=== PATIENT | male | born 1965 | race Caucasian/White ===

== ENCOUNTER 2023-08-22 12:21 | Inpatient (IN) | payer OTHER ==
[2023-08-22 13:41] VITALS: BMI 25.1
[2023-08-22] MEDS ORDERED: NALOXONE HCL (KLOXXADO) 8 MG SPRAY NS PRN (15:40)
[2023-08-22] MEDS ORDERED: BENZONATATE 200 MG CAPSULE PO PRN (15:40)
[2023-08-22] MEDS ORDERED: MAG HYDROX/AL HYDROX/SIMETH 30 ML UNIT-DOSE CUP PO PRN (15:40)
[2023-08-22] MEDS ORDERED: DICYCLOMINE HCL 10 MG CAPSULE PO PRN (15:40)
[2023-08-22] MEDS ORDERED: chlordiazePOXIDE HCL 25 MG CAPSULE PO PRN (15:40)
[2023-08-22] MEDS ORDERED: guaiFENesin 600 MG TABLET.ER (FP) PO PRN (15:40)
[2023-08-22] MEDS ORDERED: IBUPROFEN 400 MG TABLET (FP) PO PRN (15:40)
[2023-08-22] MEDS ORDERED: BENZOCAINE/MENTHOL (CHLORASEPTIC ) LOZENGE MM PRN (15:40)
[2023-08-22] MEDS ORDERED: MAGNESIUM HYDROX 2400MG/30ML ORAL SUSPENSION 30 ML CUP PO PRN (15:40)
[2023-08-22] MEDS ORDERED: POLYETHYLENE GLYCOL (HEALTHYLAX) 3350 17 GM PACKET PO PRN (15:40)
[2023-08-22] MEDS ORDERED: BISMUTH SUBSALICYLATE 262 MG/15 ML BTL PO PRN (15:40)
[2023-08-22] MEDS ORDERED: methaDONE HCL 10 MG TABLET (FOR DETOX USE ONLY) PO ONE (15:40)
[2023-08-22] MEDS ORDERED: NALOXONE HCL 0.4 MG/ML VIAL IM PRN (15:40)
[2023-08-22] MEDS ORDERED: ACETAMINOPHEN 325 MG TABLET (FP) PO PRN (15:40)
[2023-08-22] MEDS ORDERED: methaDONE HCL 10 MG TABLET (FOR DETOX USE ONLY) ONE (16:23)
[2023-08-22] MEDS: cloNIDine HCL 0.1 MG TABLET PO PRN (16:50)
[2023-08-22] MEDS: chlordiazePOXIDE HCL 25 MG CAPSULE PO SCH ×2 (16:50→22:26)
[2023-08-22] MEDS: MELATONIN 5 MG TABLETS PO SCH (22:25)
[2023-08-22] MEDS: THIAMINE HCL 100 MG TABLET (FP) PO SCH (22:25)
[2023-08-22] MEDS: IBUPROFEN 600 MG TABLET (FP) PO PRN (22:29)
[2023-08-23] MEDS: chlordiazePOXIDE HCL 25 MG CAPSULE PO SCH ×4 (05:37→22:16)
[2023-08-23] MEDS: PRENATAL VITAMINS W/ FOLIC ACID TABLET (FP) PO SCH ×2 (09:38→09:56)
[2023-08-23] MEDS: cloNIDine HCL 0.1 MG TABLET PO PRN ×2 (10:01→17:15)
[2023-08-23 11:02] LABS: HEMATOCRIT 37.5 % (35.4-49); HEMOGLOBIN 12.6 GM/dL (11.7-16.9); MCH 29.7 pg (25.7-33.7); MCHC 33.5 g/dl (32.0-35.9); MEAN CELL VOLUME 88.6 fl (80-96); MEAN PLT VOLUME 9.9 fl (7.5-11.1); PLATELET COUNT 173 10^3/uL (134-434); RBC 4.24 M/mm3 (4.00-5.60); RDW 13.2 % (11.9-15.9); WHITE BLOOD COUNT 5.6 K/mm3 (4.0-10.0)
[2023-08-23 11:05] LABS: CHLORIDE 104 mmol/L (98-107); POTASSIUM 3.5 mmol/L (3.5-5.1); SODIUM 138 mmol/L (136-145)
[2023-08-23 11:15] LABS: ANION GAP 6 mmol/L (4-13); CO2 28 mmol/L (21-32); GLUCOSE,RANDOM 114 mg/dL (74-106)
[2023-08-23 11:17] LABS: ALBUMIN 3.4 g/dl (3.4-5.0)
[2023-08-23 11:18] LABS: CREATININE 0.8 mg/dL (0.55-1.3); SGOT/AST 24 U/L (15-37); SGPT/ALT 25 U/L (13-61)
[2023-08-23 11:20] LABS: TOT PROT 6.8 g/dl (6.4-8.2)
[2023-08-23 11:21] LABS: ALK PHOS 73 U/L (45-117)
[2023-08-23] MEDS: QUEtiapine FUMARATE 100 MG TABLET (FP) PO SCH (22:16)
[2023-08-23] MEDS: THIAMINE HCL 100 MG TABLET (FP) PO SCH (22:16)
[2023-08-23] MEDS: MELATONIN 5 MG TABLETS PO SCH (22:17)
[2023-08-24] MEDS: chlordiazePOXIDE HCL 25 MG CAPSULE PO SCH ×4 (05:21→22:10)
[2023-08-24] MEDS: cloNIDine HCL 0.1 MG TABLET PO PRN ×2 (07:27→17:33)
[2023-08-24] MEDS ORDERED: methaDONE HCL 10 MG TABLET (FOR DETOX USE ONLY) PO ONE (10:00)
[2023-08-24] MEDS: PRENATAL VITAMINS W/ FOLIC ACID TABLET (FP) PO SCH (10:18)
[2023-08-24] MEDS: METHOCARBAMOL 500 MG TABLET PO PRN ×2 (10:21→17:35)
[2023-08-24] MEDS ORDERED: cloNIDine HCL 0.1 MG TABLET PO ONE (11:41)
[2023-08-24] MEDS ORDERED: amLODIPine BESYLATE 10 MG TABLET (FP) PO ONE (11:43)
[2023-08-24] MEDS: IBUPROFEN 600 MG TABLET (FP) PO PRN (17:37)
[2023-08-24] MEDS: THIAMINE HCL 100 MG TABLET (FP) PO SCH (22:10)
[2023-08-24] MEDS: QUEtiapine FUMARATE 100 MG TABLET (FP) PO SCH (22:10)
[2023-08-24] MEDS: MELATONIN 5 MG TABLETS PO SCH (22:11)
[2023-08-25] MEDS ORDERED: chlordiazePOXIDE HCL 10 MG CAPSULE PO PRN
[2023-08-25] MEDS: chlordiazePOXIDE HCL 10 MG CAPSULE PO SCH ×3 (05:38→17:52)
[2023-08-25] MEDS ORDERED: cloNIDine HCL 0.1 MG TABLET PO ONE (08:44)
[2023-08-25] MEDS ORDERED: hydrOXYzine PAMOATE 25 MG CAPSULE (FP) PO ONE (08:46)
[2023-08-25] MEDS: METHOCARBAMOL 500 MG TABLET PO PRN (08:56)
[2023-08-25] MEDS ORDERED: amLODIPine BESYLATE 10 MG TABLET (FP) PO SCH (10:00)
[2023-08-25] MEDS ORDERED: cloNIDine HCL 0.1 MG TABLET PO SCH (10:00)
[2023-08-25] MEDS: PRENATAL VITAMINS W/ FOLIC ACID TABLET (FP) PO SCH (10:39)
[2023-08-25 17:23] VITALS: BP 139/113; PULSE 97; RESP 18; TEMP 98.2
[2023-08-26] MEDS ORDERED: chlordiazePOXIDE HCL 10 MG CAPSULE PO SCH (05:00)
[2023-08-26] MEDS ORDERED: methaDONE HCL 10 MG TABLET (FOR DETOX USE ONLY) PO ONE (10:00)
[2023-08-27] MEDS ORDERED: chlordiazePOXIDE HCL 10 MG CAPSULE PO ONE (05:00)
== END 2023-08-25 17:52 | disposition left against medical advice (07) | DRG 770 ==
LOC: YASAS 12:21 → Y6N 15:51
PROVIDERS: ADMIT Allergy & Immunology; ATTEND Surgery
PROC: HZ2ZZZZ Detoxification Services for Substance Abuse Treatment (ICD-10-PCS; principal; 2023-08-22)
DX: F11.23 Opioid dependence with withdrawal (principal); F10.230 Alcohol dependence with withdrawal, uncomplicated; F39 Unspecified mood [affective] disorder; F31.9 Bipolar disorder, unspecified; F19.982 Other psychoactive substance use, unspecified with psychoactive substance-induced sleep disorder; F19.94 Other psychoactive substance use, unspecified with psychoactive substance-induced mood disorder; I10 Essential (primary) hypertension; M54.59 Other low back pain; G89.29 Other chronic pain; Z62.810 Personal history of physical and sexual abuse in childhood; Z86.19 Personal history of other infectious and parasitic diseases; Z56.0 Unemployment, unspecified; Z59.00 Homelessness unspecified; Z87.891 Personal history of nicotine dependence
CPT/HCPCS: 36415; 80053; 80307; 85027; 86780; 87635

== ENCOUNTER 2023-11-15 14:05 | Inpatient (IN) | payer OTHER ==
[2023-11-15 14:52] VITALS: BMI 24.1
[2023-11-15] MEDS ORDERED: BUPRENORPHINE HCL 150 MCG, BUPRENORPHINE HCL 75 MCG BC PRN (18:04)
[2023-11-15] MEDS ORDERED: diazePAM 5 MG TABLET PO PRN ×2 (18:04)
[2023-11-15] MEDS ORDERED: POLYETHYLENE GLYCOL (HEALTHYLAX) 3350 17 GM PACKET PO PRN (18:07)
[2023-11-15] MEDS ORDERED: BENZOCAINE/MENTHOL (CHLORASEPTIC ) LOZENGE MM PRN (18:07)
[2023-11-15] MEDS ORDERED: NALOXONE HCL (KLOXXADO) 8 MG SPRAY NS PRN (18:07)
[2023-11-15] MEDS ORDERED: MAG HYDROX/AL HYDROX/SIMETH 30 ML UNIT-DOSE CUP PO PRN (18:07)
[2023-11-15] MEDS ORDERED: MAGNESIUM HYDROX 2400MG/30ML ORAL SUSPENSION 30 ML CUP PO PRN (18:07)
[2023-11-15] MEDS ORDERED: DICYCLOMINE HCL 10 MG CAPSULE PO PRN (18:07)
[2023-11-15] MEDS ORDERED: LOPERAMIDE HCL 2 MG CAPSULE PO PRN (18:07)
[2023-11-15] MEDS ORDERED: guaiFENesin 600 MG TABLET.ER (FP) PO PRN (18:07)
[2023-11-15] MEDS ORDERED: BENZONATATE 200 MG CAPSULE PO PRN (18:07)
[2023-11-15] MEDS ORDERED: ACETAMINOPHEN 325 MG TABLET (FP) PO PRN (18:07)
[2023-11-15] MEDS ORDERED: NALOXONE HCL 0.4 MG/ML VIAL IM PRN (18:07)
[2023-11-15] MEDS ORDERED: IBUPROFEN 400 MG TABLET (FP) PO PRN (18:07)
[2023-11-15] MEDS ORDERED: IBUPROFEN 600 MG TABLET (FP) PO PRN (18:07)
[2023-11-15] MEDS ORDERED: BISMUTH SUBSALICYLATE 524 MG/30 ML PO PRN (18:07)
[2023-11-15] MEDS: BUPRENORPHINE HCL 150 MCG, BUPRENORPHINE HCL 75 MCG BC ONE (18:28)
[2023-11-15] MEDS: cloNIDine HCL 0.1 MG TABLET PO ONE (18:33)
[2023-11-15] MEDS: THIAMINE HCL 100 MG TABLET (FP) PO SCH (22:18)
[2023-11-15] MEDS: diazePAM 5 MG TABLET PO SCH (22:18)
[2023-11-15] MEDS: METHOCARBAMOL 500 MG TABLET PO PRN (22:18)
[2023-11-15] MEDS: MELATONIN 5 MG TABLETS PO SCH (22:19)
[2023-11-16] MEDS: ONDANSETRON *ODT* 4 MG TABLET SL PRN (05:58)
[2023-11-16] MEDS: BUPRENORPHINE HCL 150 MCG, BUPRENORPHINE HCL 75 MCG BC SCH (05:58)
[2023-11-16] MEDS: TRIMETHOBENZAMIDE HCL 200MG/2ML INJ IM PRN (08:17)
[2023-11-16] MEDS: PRENATAL VITAMINS W/ FOLIC ACID TABLET (FP) PO SCH (10:09)
[2023-11-16] MEDS: GABAPENTIN 300 MG CAPSULE PO SCH (10:10)
[2023-11-16] MEDS: cloNIDine HCL 0.1 MG TABLET PO PRN (10:12)
[2023-11-16 11:49] LABS: HEMATOCRIT 39.7 % (35.4-49); HEMOGLOBIN 13.2 GM/dL (11.7-16.9); MCHC 33.3 g/dl (32.0-35.9); MEAN CELL VOLUME 90.1 fl (80-96); MEAN PLT VOLUME 9.6 fl (7.5-11.1); PLATELET COUNT 193 10^3/uL (134-434); RBC 4.41 M/mm3 (4.00-5.60); RDW 14.3 % (11.9-15.9); WHITE BLOOD COUNT 5.1 K/mm3 (4.0-10.0)
[2023-11-16 11:51] LABS: CHLORIDE 104 mmol/L (98-107); POTASSIUM 4.4 mmol/L (3.5-5.1); SODIUM 140 mmol/L (136-145)
[2023-11-16 11:53] LABS: CALCIUM 9.3 mg/dL (8.5-10.1)
[2023-11-16 11:54] LABS: ALBUMIN 3.9 g/dl (3.4-5.0); ANION GAP 6 mmol/L (4-13); BLOOD UREA NITROGEN 19.7 mg/dL (7-18); CO2 30 mmol/L (21-32); GLUCOSE,RANDOM 194 mg/dL (74-106)
[2023-11-16 11:58] LABS: CREATININE 1.1 mg/dL (0.55-1.3); SGOT/AST 25 U/L (15-37); SGPT/ALT 27 U/L (13-61)
[2023-11-16] MEDS: BUPRENORPHINE HCL 150 MCG, BUPRENORPHINE HCL 75 MCG BC PRN (11:58)
[2023-11-16 11:59] LABS: TOT PROT 7.8 g/dl (6.4-8.2)
[2023-11-16 12:01] LABS: ALK PHOS 81 U/L (45-117)
[2023-11-16] MEDS: hydrOXYzine PAMOATE 25 MG CAPSULE (FP) PO PRN (17:46)
[2023-11-17] MEDS: BUPRENORPHINE HCL 450 MCG FILM BC SCH (06:23)
[2023-11-17] MEDS: diazePAM 5 MG TABLET PO SCH (06:23)
[2023-11-17] MEDS: GABAPENTIN 300 MG CAPSULE PO SCH (14:26)
[2023-11-18] MEDS: BUPRENORPHINE/NALOXONE 4 MG/1 MG FILM PACKET SL SCH (05:55)
[2023-11-18] MEDS: diazePAM 5 MG TABLET PO SCH (05:56)
[2023-11-19] MEDS: BUPRENORPHINE/NALOXONE 8 MG/2 MG FILM PACKET SL ONE (06:06)
[2023-11-19] MEDS: diazePAM 5 MG TABLET PO ONE (06:07)
[2023-11-19 09:28] VITALS: BP 126/84; PULSE 99; RESP 20; TEMP 98.2
== END 2023-11-19 10:56 | disposition home or self-care (01) | DRG 773 ==
LOC: YASAS 14:05 → Y6N 17:55
PROVIDERS: ADMIT Allergy & Immunology; ATTEND Surgery
PROC: HZ2ZZZZ Detoxification Services for Substance Abuse Treatment (ICD-10-PCS; principal; 2023-11-15)
DX: F11.23 Opioid dependence with withdrawal (principal); F10.230 Alcohol dependence with withdrawal, uncomplicated; F14.20 Cocaine dependence, uncomplicated; F19.282 Other psychoactive substance dependence with psychoactive substance-induced sleep disorder; F31.9 Bipolar disorder, unspecified; G62.9 Polyneuropathy, unspecified; I10 Essential (primary) hypertension; M54.50 Low back pain, unspecified; G89.29 Other chronic pain; R73.03 Prediabetes; Z87.891 Personal history of nicotine dependence; Z86.19 Personal history of other infectious and parasitic diseases; Z28.310 Unvaccinated for COVID-19; Z28.9 Immunization not carried out for unspecified reason
CPT/HCPCS: 36415; 80053; 80305; 80307; 82962; 83036; 85027; 86780; 93005; 93010; Q0162

== ENCOUNTER 2024-11-13 18:28 | Inpatient (IN) | payer OTHER ==
[2024-11-13 19:06] VITALS: BMI 25.9
[2024-11-13] MEDS ORDERED: BENZONATATE 200 MG CAPSULE PO PRN (19:44)
[2024-11-13] MEDS ORDERED: NALOXONE (NARCAN) HCL 4 MG/0.1 ML SPRAY NS PRN (19:44)
[2024-11-13] MEDS ORDERED: MAGNESIUM HYDROX 2400MG/30ML ORAL SUSPENSION 30 ML CUP PO PRN (19:44)
[2024-11-13] MEDS ORDERED: DICYCLOMINE HCL 10 MG CAPSULE PO PRN (19:44)
[2024-11-13] MEDS ORDERED: POLYETHYLENE GLYCOL (HEALTHYLAX) 3350 17 GM PACKET PO PRN (19:44)
[2024-11-13] MEDS ORDERED: guaiFENesin 600 MG TABLET.ER (FP) PO PRN (19:44)
[2024-11-13] MEDS ORDERED: MAG HYDROX/AL HYDROX/SIMETH 30 ML UNIT-DOSE CUP PO PRN (19:44)
[2024-11-13] MEDS ORDERED: IBUPROFEN 400 MG TABLET (FP) PO PRN (19:44)
[2024-11-13] MEDS ORDERED: ACETAMINOPHEN 325 MG TABLET (FP) PO PRN (19:44)
[2024-11-13] MEDS ORDERED: IBUPROFEN 600 MG TABLET (FP) PO PRN (19:44)
[2024-11-13] MEDS ORDERED: METHOCARBAMOL 500 MG TABLET PO PRN (19:44)
[2024-11-13] MEDS ORDERED: BISMUTH SUBSALICYLATE 524 MG/30 ML PO PRN (19:44)
[2024-11-13] MEDS ORDERED: LOPERAMIDE HCL 2 MG CAPSULE PO PRN (19:44)
[2024-11-13] MEDS ORDERED: diazePAM 5 MG TABLET PO PRN (19:44)
[2024-11-13] MEDS ORDERED: BENZOCAINE/MENTHOL (CHLORASEPTIC ) LOZENGE MM PRN (19:44)
[2024-11-13] MEDS ORDERED: MELATONIN 5 MG TABLETS ONE (22:28)
[2024-11-13] MEDS ORDERED: GABAPENTIN 100 MG CAPSULE ONE (22:28)
[2024-11-13] MEDS ORDERED: diazePAM 5 MG TABLET ONE (22:33)
[2024-11-13] MEDS: diazePAM 5 MG TABLET PO SCH (22:39)
[2024-11-13] MEDS: GABAPENTIN 300 MG CAPSULE PO ONE (22:40)
[2024-11-13] MEDS: MELATONIN 5 MG TABLETS PO SCH (22:40)
[2024-11-13] MEDS: THIAMINE 100 MG TABLET PO SCH (22:40)
[2024-11-14] MEDS ORDERED: chlordiazePOXIDE HCL 25 MG CAPSULE PO PRN (08:15)
[2024-11-14] MEDS: ONDANSETRON *ODT* 4 MG TABLET SL PRN (08:59)
[2024-11-14] MEDS: chlordiazePOXIDE HCL 25 MG CAPSULE PO ONE (08:59)
[2024-11-14] MEDS: BUPRENORPHINE/NALOXONE 8 MG/2 MG FILM PACKET SL SCH (10:18)
[2024-11-14] MEDS: chlordiazePOXIDE HCL 25 MG CAPSULE PO SCH (10:25)
[2024-11-14] MEDS: GABAPENTIN 300 MG CAPSULE PO SCH (10:25)
[2024-11-14] MEDS: PRENATAL VITAMINS W/ FOLIC ACID TABLET (FP) PO SCH (10:25)
[2024-11-14] MEDS: BUPRENORPHINE/NALOXONE 2 MG/0.5 MG FILM PACKET SL ONE (11:28)
[2024-11-14 12:37] LABS: HEMATOCRIT 43.3 % (40.1-51.0); HEMOGLOBIN 14.1 g/dL (13.7-17.5); MCHC 32.6 g/dl (32.3-36.5); MEAN CELL VOLUME 89.6 fl (79.0-92.2); MEAN PLT VOLUME 11.7 fl (9.4-12.4); PLATELET COUNT 213 x10^3/uL (163-337); RDW 12.1 % (12.2-16.1)
[2024-11-14 12:38] LABS: CHLORIDE 106 mmol/L (98-107); POTASSIUM 3.9 mmol/L (3.5-5.1); SODIUM 141 mmol/L (136-145)
[2024-11-14 12:48] LABS: CALCIUM 9.4 mg/dL (8.5-10.1)
[2024-11-14 12:49] LABS: ANION GAP 4 mmol/L (4-13); CO2 31 mmol/L (21-32); GLUCOSE,RANDOM 126 mg/dL (74-106); SGOT/AST 30 U/L (15-37); SGPT/ALT 26 U/L (13-61)
[2024-11-14 12:51] LABS: ALK PHOS 82 U/L (45-117); BLOOD UREA NITROGEN 13.4 mg/dL (7-18); TOT PROT 7.4 g/dl (6.4-8.2)
[2024-11-14 12:56] LABS: BILIRUBIN,TOTAL 1.1 mg/dL (0.2-1)
[2024-11-14] MEDS: BUPRENORPHINE/NALOXONE 4 MG/1 MG FILM PACKET SL ONE (14:34)
[2024-11-14] MEDS: QUEtiapine FUMARATE 100 MG TABLET (FP) PO SCH (22:06)
[2024-11-15] MEDS: chlordiazePOXIDE HCL 10 MG CAPSULE PO SCH (05:56)
[2024-11-15] MEDS ORDERED: diazePAM 5 MG TABLET PO SCH (06:00)
[2024-11-15] MEDS ORDERED: BUPRENORPHINE/NALOXONE 4 MG/1 MG FILM PACKET SL SCH (10:00)
[2024-11-15] MEDS: BUPRENORPHINE/NALOXONE 4 MG/1 MG FILM PACKET SL SCH (10:11)
[2024-11-15] MEDS: cloNIDine HCL 0.1 MG TABLET PO PRN (10:11)
[2024-11-15] MEDS: hydrOXYzine PAMOATE 25 MG CAPSULE (FP) PO PRN (13:13)
[2024-11-15] MEDS: BUPRENORPHINE/NALOXONE 2 MG/0.5 MG FILM PACKET SL ONE (13:13)
[2024-11-15] MEDS: BUPRENORPHINE/NALOXONE 4 MG/1 MG FILM PACKET SL ONE (22:08)
[2024-11-16] MEDS: chlordiazePOXIDE HCL 10 MG CAPSULE PO SCH (05:35)
[2024-11-16] MEDS ORDERED: diazePAM 5 MG TABLET PO SCH (06:00)
[2024-11-16] MEDS: BUPRENORPHINE/NALOXONE 4 MG/1 MG FILM PACKET SL SCH (06:01)
[2024-11-17] MEDS ORDERED: diazePAM 5 MG TABLET PO ONE (06:00)
[2024-11-17] MEDS: chlordiazePOXIDE HCL 10 MG CAPSULE PO ONE (06:00)
[2024-11-17 06:39] VITALS: RESP 18
[2024-11-17 10:25] VITALS: BP 113/75; PULSE 82; TEMP 96.8
== END 2024-11-17 09:54 | disposition home or self-care (01) | DRG 773 ==
LOC: YASAS 18:28 → Y6N 22:02
PROVIDERS: ADMIT Allergy & Immunology; ATTEND Allergy & Immunology
PROC: HZ2ZZZZ Detoxification Services for Substance Abuse Treatment (ICD-10-PCS; principal; 2024-11-13)
DX: F10.230 Alcohol dependence with withdrawal, uncomplicated (principal); F11.20 Opioid dependence, uncomplicated; F12.20 Cannabis dependence, uncomplicated; F19.282 Other psychoactive substance dependence with psychoactive substance-induced sleep disorder; F19.24 Other psychoactive substance dependence with psychoactive substance-induced mood disorder; F39 Unspecified mood [affective] disorder; I10 Essential (primary) hypertension; K21.9 Gastro-esophageal reflux disease without esophagitis; M54.50 Low back pain, unspecified; G89.29 Other chronic pain; Z87.891 Personal history of nicotine dependence; Z86.19 Personal history of other infectious and parasitic diseases; Z59.00 Homelessness unspecified
CPT/HCPCS: 36415; 80053; 80305; 80307; 85027; 86780; 93005; 93010; Q0162